=== PATIENT | male | born 1980 | race African-American/Black ===

== ENCOUNTER 2019-10-30 16:15 | Emergency (ER) | payer BC ==
[2019-10-30] MEDS ORDERED: CEFAZOLIN 2 GM/D5W RTU 2 GM/50 ML RTUPB IV ONE (16:38)
[2019-10-30] MEDS ORDERED: LIDOCAINE 1% INJ-PF (10 MG/ML) 30 ML SDV INJ ONE (16:39)
[2019-10-30] MEDS ORDERED: KETOROLAC TROMETHAMINE INJ/PF 30 MG/1 ML SDV IV ONE (16:42)
--- NOTE | 2019-10-30 17:12 | ER Document Report ---
ED General - General Chief Complaint: Fall Injury Stated Complaint: FALL/LEG INJURY Time Seen by Provider: 10/30/19 16:27 Primary Care Provider: KATE BENZ [NO LOCAL MD] - Follow up as needed - HPI Notes: This is a previously healthy 38-year-old male taking no regular medications with no known allergies presenting with a chief complaint of laceration of the left buttock resulting from a fall from a ladder. 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 He struck some type of a projecting piece of metal as he was falling and sustained a large laceration across the inferior aspect of the left buttock. He denies neck pain. He denies breathing problems. He denies loss of consciousness. He denies any other injuries aside from the laceration. Last tetanus booster has been updated within the last 5 years. Past Medical History - General Information source: Patient, Relative - Social History Smoking Status: Never Smoker Family History: Reviewed & Not Pertinent Patient has suicidal ideation: No Patient has homicidal ideation: No Review of Systems - Review of Systems Notes: Constitutional: Negative for fever. HENT: Negative for sore throat. Eyes: Negative for visual changes. Cardiovascular: Negative for chest pain. Respiratory: Negative for shortness of breath. Gastrointestinal: Negative for abdominal pain, vomiting or diarrhea. Genitourinary: Negative for dysuria. Musculoskeletal: Negative for back pain. Skin: Negative for rash. Neurological: Negative for headaches, weakness or numbness. 10 point ROS negative except as marked above and in HPI. Physical Exam - Vital signs Vitals: Temp Pulse BP Pulse Ox 97.7 F 70 153/85 H 98 10/30/19 16:23 10/30/19 16:23 10/30/19 16:23 10/30/19 16:23 - Notes Notes: GENERAL: Male patient of approximately stated age seen lying in a prone position on stretcher appearing in moderate discomfort with a large laceration over the left inferior gluteal area. SKIN: Good turgor no rashes. HEAD: Normocephalic atraumatic. EYES: PERRLA. EOMI. Conjunctivae and sclerae clear. EARS: CANALS AND TMS CLEAR. NOSE: CLEAR. MOUTH: Moist mucosa. Good dentition. No stridor or edema. No drooling. NECK: Supple. No masses or thyromegaly. No adenopathy. Carotids 2+ without bruits. No JVD. BACK: Symmetrical without tenderness. CHEST: Respirations unlabored. Breath sounds clear and symmetrical. HEART: Regular rhythm. No murmur gallop or rub. ABDOMEN: Soft nontender without masses, organomegaly or rebound. Bowel sounds normally active. No bruits. GENITALIA: Deferred. EXTREMITIES: 30 cm curvilinear laceration extending along the inferior gluteal crease on the left in a transverse orientation. There is minimal venous oozing at the site. This laceration is deep extending into the fascia. No calf tenderness. Cap refill less than 1.5 seconds. Dorsalis pedis and posterior tibial pulses 3+ and symmetrical. NEUROLOGICAL: GCS 15. Alert and oriented x3. Normal gait. Fluent speech. Cranial nerves II through XII intact. Sensorimotor and cerebellar normal. Normal tone. PSYCHIATRIC: Appropriate affect. Course - Re-evaluation Re-evalutation: 10/30/19 20:02 C-spine x-rays negative per radiologist. Normal chest x-ray per radiologist. I recommended a CT abdomen pelvis but patient declined this after discussion of risks and benefits. Expiration of the wound suggest that there was no deep penetration beyond the muscle area. The wound was appropriately irrigated and sutured with a layered closure. Patient was given Toradol IV here for analgesia as well as local anesthetic for the repair and he received IV Ancef. His tetanus booster is current. He is stable for outpatient follow-up. - Vital Signs Vital signs: Temp Pulse Resp BP Pulse Ox 97.7 F 70 153/85 H 98 10/30/19 16:23 10/30/19 16:23 10/30/19 16:23 10/30/19 16:23 - Laboratory Result Diagrams: 10/30/19 17:10 10/30/19 17:10 Laboratory results interpreted by me: 10/30/19 10/30/19 17:10 17:10 Hgb 13.1 L Carbon Dioxide 32 H Procedures - Laceration/Wound Repair Left Lower Buttock Time completed: 19:50 Wound length (cm): 30 Wound's Depth, Shape: Into muscle, Flap, Stellate Laceration pre-procedure: Sterile PPE donned, Chloraprep applied, Sterile drapes applied Anesthetic type: 1% Lidocaine Volume Anesthetic (mLs): 20 Wound explored: Clean, No foreign body removed Irrigated w/ Saline (mLs): 2,000 Wound Debrided: Minimal Wound Repaired With: Sutures Suture Size/Type: 3:0, Ethilon Number of Sutures: 12 Layer Closure?: Yes Deep Layer Suture Size/Type: 3:0, Other - Vicryl Number Deep Layer Sutures: 12 - Muscle and fascia approximated Post-procedure wound care: Sterile dressing applied Post-procedure NV exam normal: Yes Complications: No Discharge - Discharge Clinical Impression: Fall from ladder Laceration of left buttock Qualifiers: Encounter type: initial encounter Qualified Code(s): S31.821A - Laceration without foreign body of left buttock, initial encounter Condition: Stable Disposition: HOME, SELF-CARE Instructions: Antibiotic Ointment Protection ([facility]), Oral Narcotic Medication ([facility]), Laceration Care ([facility]) Additional Instructions: See your doctor for a wound check in 2 to 3 days. Suture removal in 10 to 14 days by your doctor. Return here as needed for new or worsening symptoms: Pain that is worsening or unimproved Uncontrolled vomiting High fever or shaking chills Severe redness with drainage of pus from the wound Overall worsening Prescriptions: Cephalexin Monohydrate [Keflex 500 mg Capsule] 500 mg PO QID 10 Days #40 capsule Oxycodone HCl/Acetaminophen [Percocet 5-325 mg Tablet] 1 tab PO Q6H PRN 5 Days #20 tablet PRN Reason: Referrals: LOCALMD,NO [NO LOCAL MD] - Follow up as needed
--- NOTE | 2019-10-30 17:23 | RADIOLOGY REPORT (SQ) ---
EXAM DESCRIPTION: CHEST SINGLE VIEW COMPLETED DATE/TIME: 10/30/2019 5:15 pm REASON FOR STUDY: trauma COMPARISON: None. EXAM PARAMETERS: NUMBER OF VIEWS: One view. TECHNIQUE: Single frontal radiographic view of the chest acquired. RADIATION DOSE: NA LIMITATIONS: None. FINDINGS: LUNGS AND PLEURA: No opacities, masses or pneumothorax. No pleural effusion. MEDIASTINUM AND HILAR STRUCTURES: No masses. Contour normal. HEART AND VASCULAR STRUCTURES: Heart normal in size. Normal vasculature. BONES: No acute findings. HARDWARE: None in the chest. OTHER: No other significant finding. IMPRESSION: NO ACUTE RADIOGRAPHIC FINDING IN THE CHEST. TECHNICAL DOCUMENTATION: JOB ID: [id number] [place]-72 2010 [employer]- All Rights Reserved Reading location - IP/workstation name: [email or web address]
--- NOTE | 2019-10-30 17:27 | RADIOLOGY REPORT (SQ) ---
EXAM DESCRIPTION: CERV SP 4 OR 5 VIEWS COMPLETED DATE/TIME: 10/30/2019 5:15 pm REASON FOR STUDY: trauma COMPARISON: None. NUMBER OF VIEWS: Five views. TECHNIQUE: AP, lateral, obliques and odontoid radiographic images acquired of the cervical spine. LIMITATIONS: None. FINDINGS: MINERALIZATION: Normal. ALIGNMENT: Anatomic. VERTEBRAE: Vertebral bodies of normal height. DISCS: No significant osteophytes or sclerosis. Disc height maintained. FORAMINA: No osteophytes or foraminal narrowing. LATERAL AND POSTERIOR ELEMENTS: Facets, lateral masses and spinous processes without significant find ings. HARDWARE: None in the spine. SOFT TISSUES: No masses or calcifications. Lung apices clear. OTHER: No other significant finding. IMPRESSION: NO SIGNIFICANT RADIOGRAPHIC FINDING IN THE CERVICAL SPINE. TECHNICAL DOCUMENTATION: JOB ID: [id number] [place]-[id number] 2010 [employer]- All Rights Reserved Reading location - IP/workstation name: [email or web address]
[2019-10-30] MEDS ORDERED: CEFAZOLIN INJ 1 GM VIAL IV ONE (17:36)
[2019-10-30 17:43] LABS: ABSOLUTE LYMPHOCYTES (AUTO) 1.3 10^3/uL (0.5-4.7); ABSOLUTE MONOCYTES (AUTO) 0.3 10^3/uL (0.1-1.4); ABSOLUTE NEUT (AUTO) 2.3 10^3/uL (1.7-8.2); BASOPHILS % (AUTO) 0.4 % (0-2); EOSINOPHILS % (AUTO) 0.6 % (0-6); HEMATOCRIT 38.8 % (37.9-51.0); HEMOGLOBIN 13.1 g/dL (13.5-17.0); LYMPHOCYTES % (AUTO) 32.4 % (13-45); MEAN CORPUSCULAR HGB CONC 33.8 g/dL (32.0-36.0); MEAN CORPUSCULAR VOLUME 83 fl (80-97); MONOCYTES % (AUTO) 8.7 % (3-13); PLATELET COUNT 227 10^3/uL (150-450); RED BLOOD COUNT 4.68 10^6/uL (4.35-5.55); RED CELL DISTRIBUTION WIDTH 13.5 % (11.5-14.0); SEGMENTED NEUTROPHILS % (AUTO) 57.9 % (42-78); TOTAL CELLS COUNTED % (AUTO) 100 %
[2019-10-30 17:50] LABS: ALBUMIN 4.4 g/dL (3.5-5.0); ALKALINE PHOSPHATASE 65 U/L (38-126); ANION GAP 8 (5-19); ASPARTATE AMINO TRANSFERASE 30 U/L (17-59); BILIRUBIN,DIRECT 0.2 mg/dL (0.0-0.4); BILIRUBIN,TOTAL 0.4 mg/dL (0.2-1.3); BLOOD UREA NITROGEN 17 mg/dL (7-20); CALCIUM 9.5 mg/dL (8.4-10.2); CARBON DIOXIDE 32 mmol/L (22-30); CHLORIDE 103 mmol/L (98-107); GLUCOSE 76 mg/dL (75-110); POTASSIUM 4.3 mmol/L (3.6-5.0); TOTAL PROTEIN 7.8 g/dL (6.3-8.2)
[2019-10-30 17:52] LABS: ALCOHOL < 10 mg/dL (NONE DETECTED)
[2019-10-30 18:08] LABS: APPEARANCE,URINE CLEAR; BILIRUBIN,URINE NEGATIVE (NEGATIVE); COLOR,URINE YELLOW; GLUCOSE, URINE NEGATIVE (NEGATIVE); KETONES,URINE NEGATIVE (NEGATIVE); PROTEIN,URINE NEGATIVE (NEGATIVE); URINE SPECIFIC GRAVITY 1.023; UROBILINOGEN,URINE NEGATIVE mg/dL (<2.0)
[2019-10-30 18:23] LABS: URINE AMPHETAMINES SCREEN NEGATIVE; URINE BARBITURATES SCREEN NEGATIVE; URINE BENZODIAZEPINES SCREEN NEGATIVE; URINE COCAINE SCREEN NEGATIVE; URINE MARIJUANA (THC) SCREEN NEGATIVE; URINE METHADONE SCREEN NEGATIVE; URINE PHENCYCLIDINE SCREEN NEGATIVE
[2019-10-30 21:33] VITALS: BP 136/76
== END 2019-10-30 21:35 | disposition home or self-care (01) ==
LOC: ER 16:15
DX: S31.821A Laceration without foreign body of left buttock, initial encounter (principal); W11.XXXA Fall on and from ladder, initial encounter; W22.8XXA Striking against or struck by other objects, initial encounter; Y93.89 Activity, other specified; Y92.009 Unspecified place in unspecified non-institutional (private) residence as the place of occurrence of the external cause; Z23 Encounter for immunization
CPT/HCPCS: 13101; 13102 ×5; 99283; 96375; 96365; 36415; 80307 ×2; 85025; 80053; 81001; 72050; 71045; J0690; J3490; J1885